=== PATIENT | male | born 1965 | race Caucasian/White ===

== ENCOUNTER 2016-10-29 11:50 | Outpatient (CLI) | payer OTHER ==
--- NOTE | 2016-10-29 13:25 | DIAGNOSTIC IMAGING REPORT ---
PROCEDURE: XR CHEST 2 VIEW INDICATION: COUGH PERSISTENT IN SMOKER, R/O PNEUMONIA TECHNIQUE: PA and lateral views. COMPARISON: None available FINDINGS: There is a linear left lower lobe infiltrate. Heart and mediastinum are normal. Thorax is normal. IMPRESSION: 1. Linear left lower lobe infiltrate.
== END 2016-10-29 23:00 ==
LOC: XR SRH 11:50
DX: J40 Bronchitis, not specified as acute or chronic (principal); R91.8 Other nonspecific abnormal finding of lung field